=== PATIENT | male | born 1960 | race Caucasian/White ===

== ENCOUNTER → 2021-05-07 | Day surgery (SDC) | payer OTHER ==
[~2021-05-07] VITALS: Ht 165.1 cm; Wt 76.2 kg
[~2021-05-07] MED LIST: ACETAMINOPHEN500 M1 PO; COLACE100 MG PO; IBUPROFEN400 MG PO; MOTRIN600 MG PO; OXY-IR 5MG5 MG PO
== END | disposition home or self-care (01) ==
LOC: FAS 06:20 → EDSEX 07:30 → FAS 07:30
DX: K40.30 Unilateral inguinal hernia, with obstruction, without gangrene, not specified as recurrent (principal); M19.90 Unspecified osteoarthritis, unspecified site; Z79.1 Long term (current) use of non-steroidal anti-inflammatories (NSAID)
CPT/HCPCS: J0690; J1100; J1644; J2250; J2405; J2704; J2710; J3010; J7120